=== PATIENT | female | born 1930 | race Caucasian/White ===

== ENCOUNTER 2018-05-10 12:54 | Emergency (ER) | payer MEDICARE ==
[~2018-05-10] VITALS: Ht 162.6 cm; Wt 54.5 kg
[2018-05-10 12:56] VITALS: Ht 162.6 cm; Wt 54.5 kg
[2018-05-10] MEDS ORDERED: BAYER CHEWABLE81 MG PO (12:58)
[2018-05-10] MEDS ORDERED: VOLTAREN100 GM TOPICAL (12:58)
[2018-05-10] MEDS ORDERED: LYRICA50 MG PO (12:59)
[2018-05-10] MEDS ORDERED: MAG-OXIDE400 MG PO (12:59)
[2018-05-10] MEDS ORDERED: OCUVITE (12:59)
[2018-05-10] MEDS ORDERED: VIACTIV SOFT C1 EACH PO (13:00)
[2018-05-10] MEDS ORDERED: TRAZODONE HCL100 MG PO (13:00)
[2018-05-10] MEDS ORDERED: OMEGA-3100 MG PO (13:00)
[2018-05-10] MEDS ORDERED: MAXZIDE 75/501 TAB PO (13:00)
[2018-05-10 16:24] LABS: BASOPHILS 0.4 % (0-2); EOSINOPHILS 2.3 % (0-7); HEMATOCRIT 41.8 % (36.0-48.0); HEMOGLOBIN 14.3 g/dL (12-16); IMMATURE GRANULOCYTES 0.4 % (0-5); MCHC 34.2 g/dL (31.0-37.0); MCV 87.8 fL (80.0-100.0); MEAN PLATELET VOLUME 9.1 fL (7.4-10.4); MONOCYTES 8.8 % (2-11); NEUTROPHILS 76.1 % (40-80); PLATELET COUNT 202 10x3/uL (130-400); RBC 4.76 10x6/uL (4.00-5.40); RDW 13.2 % (11.5-14.5); WBC 11.4 10x3/uL (4.8-10.8)
[2018-05-10 17:31] LABS: ALBUMIN 3.9 g/dL (3.4-5.0); ANION GAP 14.5 mmol/L (8-16); BILIRUBIN - TOTAL 0.53 mg/dL (0.2-1.3); CALCIUM 10.1 mg/dL (8.5-10.1); CARBON DIOXIDE 30.3 mmol/L (21.0-32.0); CREATININE - SERUM 1.1 mg/dL (0.6-1.3); POTASSIUM - SERUM 3.8 mmol/L (3.5-5.1); PROTEIN - SERUM 7.3 g/dL (6.4-8.2)
[2018-05-10 18:43] VITALS: BP 178/69
== END 2018-05-10 18:44 | disposition home or self-care (01) ==
LOC: D.ER 12:54
PROVIDERS: Emergency Medicine
DX: R51 Headache (principal); M25.552 Pain in left hip; M54.5 Low back pain; M54.2 Cervicalgia; W18.30XA Fall on same level, unspecified, initial encounter; Y93.89 Activity, other specified; Y92.019 Unspecified place in single-family (private) house as the place of occurrence of the external cause